=== PATIENT | female | born 1980 | race Caucasian/White ===

== ENCOUNTER 2016-12-10 15:31 | Emergency (ER) | payer OTHER ==
[2016-12-10 15:34] VITALS: BP 150/82; PULSE 70; RESP 20; TEMP 98.2; O2SAT 100
--- NOTE | 2016-12-10 16:06 | PD ---
HPI Chief Complaint: Eye Problems/Injury Time Seen by Provider: 16:06 Travel History International Travel<30 days: No Contact w/Intl Traveler<30days: No Traveled to known affect area: No History of Present Illness HPI 26-year-old female presents to the emergency Department with complaint of right eye redness and pain that started yesterday. She woke up yesterday morning with her right eye completely crusted shut and called her doctor and the prescribed her Polytrim eyedrops but she started using at approximately 3:00 yesterday afternoon. She's been using the drops every 3 hours to both eyes because she had some minimal crusting in her left eye. She is concerned of the redness to the lateral aspect of her right thigh and increased pain. She reports improvement in eye drainage. She woke up this morning with minimal crusting to both of her eyes. She took a pain medication that she was prescribed for her low back pain earlier with some relief of pain. Denies trauma to the eye or known foreign body. She denies change in vision. Denies photophobia. Denies fever, chills, nausea, vomiting. Allergies to codeine. No other modifying factors or associated signs and symptoms. PFSH Past Medical History ?: Not Social History Tobacco Use: No Allergies-Medications (Allergen,Severity, Reaction): Coded Allergies: Codeine (Verified Allergy, Unknown, 12/10/16) Reported Meds & Prescriptions Reported Meds & Active Scripts Active Erythromycin Opth Oint 5 Mg/Gm Oint 1 Applic EACH EYE QID 7 Days Review of Systems Except as stated in HPI: all other systems reviewed are Neg Physical Exam Narrative GENERAL: Well-nourished, well-developed patient, in no acute distress; afebrile , nontoxic-appearing SKIN: Warm and dry. HEAD: Atraumatic. Normocephalic. EYES: Pupils equal and round at 3 mm with brisk reaction. PERRLA. EOMI. right lid eversion with no foreign body noted. Right eye with scleral hemorrhage noted to the lateral aspect; and mild lid edema. No orbital tenderness, erythema or cellulitis. Right eye without photophobia. No consensual photophobia. No scleral icterus. Clear drainage. Seth lamp exam reveals [-] at the [-] position. ENT: Mucosa pink and moist. Airway patent. NECK: Trachea midline. CARDIOVASCULAR: Regular rate. RESPIRATORY: No accessory muscle use. GASTROINTESTINAL: Flat. NEUROLOGICAL: Awake and alert. Oriented 3. No obvious cranial nerve deficits. Motor grossly within normal limits. Normal speech. PSYCHIATRIC: Appropriate mood and affect; insight and judgment normal. Data Data Last Documented VS Vital Signs Date Time Temp Pulse Resp B/P Pulse Ox O2 Delivery O2 Flow Rate FiO2 12/10/16 15:34 98.2 70 20 150/82 100 Room Air Orders Proparacaine 0.5% Opth Soln (Alcaine 0.5 (12/10/16 16:15) MDM Medical Decision Making Medical Screen Exam Complete: Yes Emergency Medical Condition: Yes Medical Record Reviewed: Yes Differential Diagnosis Viral Conjunctivitis, chemosis, scleral hemorrhage, bacterial conjunctivitis Narrative Course 36-year-old female physical examination consistent with right eye scleral hemorrhage, chemosis of right conjunctiva, and conjunctivitis. Seth lamp exam is normal. Patient states ever since she started using the Polytrim eyedrops she developed the ecchymosis and scleral hemorrhage of the right eye. I instructed the patient to stop using the Polytrim eyedrops and prescribed her erythromycin for home. I offered the patient a nonnarcotic while in the ER and she declined. The patient has been sick with nasal congestion and cough for a week. I did offer to give her a prescription for an oral antibiotics and she declined. She said she has history of [place] spotted fever and she was on so many antibiotics it tore up her stomach. She has had close follow-up with her primary care provider and they're trying to keep her away from antibiotics. Instructed patient to follow up with ophthalmology and primary care. Patient verbalizes understanding and agreement with treatment plan. Patient is medically cleared and stable for discharge. Discussed reasons to return to the emergency department. Instructed patient to follow up with primary care provider. Patient agrees with treatment plan. The patients vital signs are stable and the patient is stable for outpatient follow-up and treatment. Patient discharged home, stable and in no acute distress. 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 Patient Instructions: Conjunctivitis (ED), General Instructions Departure Forms: Tests/Procedures, Work Release Enter return to work date: Dec 12, 2016 Additional Instructions: Conjunctivitis is contagious Use antibiotic drops as prescribed Apply warm or cool compresses to both eyes for a few minutes several times daily to minimize irritation Avoid triggers, such as allergens, that may irritate your eyes Wash your hands frequently Do not share washcloths, towels, pillows, or any other material that has touched your eyes with any other household members Follow-up with your primary care provider Follow-up with ophthalmology Return to the emergency department immediately with worsening of symptoms Med/Other Pt SpecificInfo: Med Stopped Scripts Erythromycin Opth Oint 5 Mg/Gm Oint1 Applic EACH EYE QID 7 Days Ref 0 Prov:Leila Espinal 12/10/16 Disposition: 01 DISCHARGE HOME Condition: Stable Leila Espinal Dec 10, 2016 16:06
[2016-12-10] MEDS ORDERED: PROPARACAINE HCL 0.5% OPHT SOLN 15 ML BTL RIGHT EYE ONE (16:15)
[2016-12-10] MEDS ORDERED: ERYTOIN10 EACH EYE (16:48)
== END 2016-12-10 17:18 | disposition home or self-care (01) ==
LOC: NEPK 15:31
DX: H10.9 Unspecified conjunctivitis (principal)
CPT/HCPCS: 99282

== ENCOUNTER 2018-03-14 06:09 | Inpatient (IN) ==
[2018-03-14] MEDS ORDERED: Sodium Chlor 0.9% Inj 500 ML IV.SIG PRN (07:20)
[2018-03-14] MEDS ORDERED: Naloxone Inj 0.4 MG/ML Vial IV.PUSH PRN ×2 (07:20→17:07)
[2018-03-14] MEDS ORDERED: Sod Chloride 0.9% Inj 1,000 ML IV.CONT PRN (07:20)
[2018-03-14] MEDS ORDERED: fentaNYL Citrate Inj 100 MCG/2 ML Ampul IV.PUSH PRN ×2 (07:20)
[2018-03-14] MEDS ORDERED: Oxytocin 30 Units/500ml Premix 30 UNITS/500 ML BAG IV.SIG ONE (07:20)
[2018-03-14] MEDS ORDERED: Citric Acid/Sodium Citrate Liq 30 ML UDC PO SCH (07:30)
[2018-03-14 07:54] LABS: Baso % (Auto) 0.3 % (0.0-2.0); Eos # (Auto) 0.1 th/mm3 (0.0-0.4); Hematocrit 43.1 % (35.0-46.0); Hemoglobin 14.4 gm/dL (11.6-15.3); Lymph # (Auto) 1.7 th/mm3 (1.0-4.8); Lymph % (Auto) 15.5 % (9.0-44.0); Mean Corpuscular HGB Conc 33.4 % (32.0-36.0); Mean Corpuscular Hemoglobin 29.7 pg (27.0-34.0); Mean Corpuscular Volume 88.9 fL (80.0-100.0); Mean Platelet Volume 8.5 fL (7.0-11.0); Mono # (Auto) 0.9 th/mm3 (0.0-0.9); Mono % (Auto) 8.2 % (0.0-8.0); Neut # (Auto) 8.4 th/mm3 (1.8-7.7); Platelet Count 186 th/mm3 (150-450); Red Blood Count 4.85 mil/mm3 (4.00-5.30); Red Cell Distribution Width 13.5 % (11.6-17.2); White Blood Count 11.2 th/mm3 (4.0-11.0)
[2018-03-14] MEDS ORDERED: Penicillin G Potassium Inj 5,000,000 UNIT in Sodium Chloride 0.9% Inj 100 ML IV.SIG ONE (08:00)
[2018-03-14 08:04] LABS: Bilirubin,Urine Negative (Negative); Clarity,Urine Clear (Clear); Color,Urine Yellow (Yellw/Straw); Glucose,Urine (UA) Negative (Negative); Hyaline Casts,Urine 1 /lpf (0-3); Leukocyte Esterase,Urine Negative (Negative); Mucus,Urine Few /lpf (Occasional); Nitrite,Urine Negative (Negative); Specific Gravity,Urine 1.014 (1.002-1.035); Squamous Epithelial Cell,Urine 1 /hpf (0-5)
[2018-03-14 08:06] LABS: Amphetamine Screen,Urine Neg (Neg); Barbiturate Screen,Urine Neg (Neg); Cannabinoid Screen,Urine Neg (Neg); Cocaine Screen,Urine Neg (Neg)
[2018-03-14 08:08] LABS: Opiate Screen,Urine Neg (Neg)
--- NOTE | 2018-03-14 08:21 | P.OBLABOR ---
Subjective Interval history: 37 yo mwf at 39 and 6/7 admitted for cervical ripening and delivery. No GTN hypertension, GDM or PTL + GBS No leaking, bleeding. GFM Objective Vital Signs: Vital Signs - 8 hr 03/14/18 06:37 03/14/18 07:52 Temperature 98.0 F Pulse Rate 68 72 Respiratory Rate 15 18 Blood Pressure 130/70 120/80 Objective: cervix soft, anterior, -2 50%/1-2 arom bloody strip category one EFW 8 pounds pelvis proven Weeks Gestation: 40 Patient Started Active Labor: No Medical Induction of Labor: Yes Medical Induction Start Date: 03/14/18 Medical Induction Start Time: 08:20 Artificial Rupture of Membrane: Yes Artificial ROM Date: 03/14/18 Artificial ROM Time: 08:21 Assessment and Plan - Diagnosis (1) 40 weeks gestation of Code(s): Z3A.40 - 40 weeks gestation of Status: Acute - Plan anticipate
--- NOTE | 2018-03-14 08:56 | P.HPOB ---
History of Present Illness Primary Care Physician: No Primary Care Physician Chief Complaint: iol at term History of Present Illness: 37 yo with iup at 39w6d being admitted for iol at term. SHe has good movement, irreg contractions. No lof or vb. BPP in office yesterday confirms cephalic presentation, BPP 04/11. She has had quick inductions with her previous pregnancies; last induction she had pitocin for 3 hours and delivered without any complications. Largest child was 8 lb 14 oz. Weeks Gestation:: 40 Para: 3 : 5 Total # of Miscarriage(s): 1 - Inpatient Certification If this patient has been admitted as an Inpatient: I certify that the inpatient services were ordered in accordance with Medicare regulations governing the order. This includes certification that hospital inpatient services are reasonable and necessary and in the case of services not specified as inpatient-only under 42 CFR 419.22(n), that they are appropriately provided as inpatient services in accordance to with the 2-midnight benchmark under 43 CFR 412.3(e) Estimated Total Length of Stay (Days): 3 Plans for Post Hospital Care: Home Review of Systems All other systems reviewed negative except as stated in HPI PMFSH - Medical / Surgical Hx Neg / Unobtainable Medical Problems Denied: Yes - Surgical History Surgical History: Surgical History (Last Updated 03/14/18 @ 08:49 by Dyan Bonds MD) H/O dilation and curettage - Tobacco History Second Hand Smoke Exposure: No Tobacco Use In Past 30 Days: No Smoking Status: Never smoker - Travel History Recent Travel in the [place] Within the Last 8 Weeks: No Recent Travel Out of the Country Within the Last 8 Weeks: No Medications and Allergies Active Medications: Active Medications Citric Acid/Sodium Citrate (Sodium Citrate/Citric Acid Liq) 30 ml 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 [facility] Stop: 03/18/18 07:29 Fentanyl Citrate (Fentanyl Inj) 50 mcg IV.PUSH Q1H PRN PRN Reason: Pain Scale 3 - 5 Fentanyl Citrate (Fentanyl Inj) 100 mcg IV.PUSH Q1H PRN PRN Reason: PAIN SCALE 6 TO 10 Lactated Ringer's (Lr 1000 Ml Inj) 1,000 mls @ 125 mls/hr IV.CONT .Q8H [facility] Last Admin: 03/14/18 07:49 Dose: 125 mls/hr Lactated Ringer's (Lr 1000 Ml Inj) 1,000 mls @ 3,000 mls/hr IV.SIG UNSCH PRN PRN Reason: compromise or epidural Sodium Chloride (Ns Inj) 500 mls @ 1,000 mls/hr IV.SIG UNSCH PRN PRN Reason: SEE LABEL COMMENTS Sodium Chloride (Ns Inj) 1,000 mls @ 100 mls/hr IV.CONT .Q10H PRN PRN Reason: SEE LABEL COMMENTS Penicillin G Potassium 2,500, (000 unit/ Sodium Chloride) 100 mls @ 200 mls/hr IV.SIG Q4H CORAZON Lactated Ringer's (Lr 1000 Ml Inj) 1,000 mls @ 125 mls/hr IV.CONT .Q8H CORAZON Lidocaine HCl (Xylocaine 1% Inj) 0.1 ml I-DERMAL PRN PRN PRN Reason: For IV start Stop: 03/17/18 07:19 Lidocaine HCl (Xylocaine 1% Inj) 10 ml INFILTRATN PRN PRN PRN Reason: For episiotomy repair Stop: 03/16/18 07:19 Mineral Oil (Muri-Lube Oil) 10 ml TOPICAL PRN PRN PRN Reason: PRN perineal massage Naloxone HCl (Narcan Inj) 0.1 mg IV.PUSH Q2M PRN PRN Reason: for opiate reversal Ondansetron HCl (Zofran Odt) 4 mg PO Q6H PRN PRN Reason: NAUSEA Allergies Allergy/AdvReac Type Severity Reaction Status Date / Time codeine Allergy Mild Nausea Verified 03/14/18 08:50 Sulfa (Sulfonamide Allergy Unknown Nausea Verified 03/14/18 08:50 Antibiotics) Home Medications Medication Instructions Recorded Confirmed Type PNV #[id number] 1 tab PO DAILY 03/14/18 03/14/18 History Exam Vital signs: Vital Signs 03/14/18 06:37 03/14/18 07:52 Temperature 98.0 F Pulse Rate 68 72 Respiratory Rate 15 18 Blood Pressure 130/70 120/80 Intake & Output 03/13/18 03/14/18 03/14/18 18:59 06:59 18:59 Weight 83.461 kg 83.461 kg Other: Weight On Admission 83.461 kg - Constitutional no acute distress - Routine HEENT Exam Head: Present: normocephalic - Routine Neck Exam Present: supple, full ROM - Routine Chest/Breast/Axilla Exam Chest wall: Absent: tenderness - Routine Respiratory Exam Absent: accessory muscle use - Routine Cardiovascular Exam Present: RRR. Absent: JVD - Routine Abdominal Exam Present: soft - Routine Exam Comments: /-3 yesterday - Routine Extremities Exam Absent: cyanosis, clubbing Results - Labs CBC & Chem 7: 03/14/18 07:20 Labs: Laboratory Results - last 24 hr 03/14/18 03/14/18 03/14/18 06:40 06:40 07:20 WBC 11.2 H RBC 4.85 Hgb 14.4 Hct 43.1 MCV 88.9 MCH 29.7 MCHC 33.4 RDW 13.5 Plt Count 186 MPV 8.5 Neut % (Auto) 75.0 H Lymph % (Auto) 15.5 [place] % (Auto) 8.2 H Eos % (Auto) 1.0 Baso % (Auto) 0.3 Neut # (Auto) 8.4 H Lymph # (Auto) 1.7 [place] # (Auto) 0.9 Eos # (Auto) 0.1 Baso # (Auto) 0.0 WBC Differential . Differential Comment Auto diff final Urine Color Yellow Urine Clarity Clear Urine pH 7.0 Ur Specific [place] 1.014 Urine Protein Negative Urine Glucose (UA) Negative Urine Ketones Negative Urine Occult Blood Negative Urine Nitrate Negative Urine Bilirubin Negative Urine Urobilinogen Less than 2 Ur Leukocyte Esterase Negative Urine RBC 1 Urine WBC 1 Ur Squamous Epith Cells 1 Hyaline Casts 1 Urine Mucus Few H Micro UA Comment Culture not ind Urine Culture Comments Culture not ind Urine Opiates Screen Neg Ur Barbiturates Screen Neg Ur Amphetamines Screen Neg U Benzodiazepines Scrn Neg Urine Cocaine Screen Neg U Cannabinoids Screen Neg Blood Type Blood Type Recheck 03/14/18 07:20 WBC RBC Hgb Hct MCV MCH MCHC RDW Plt Count MPV Neut % (Auto) Lymph % (Auto) [place] % (Auto) Eos % (Auto) Baso % (Auto) Neut # (Auto) Lymph # (Auto) [place] # (Auto) Eos # (Auto) Baso # (Auto) WBC Differential Differential Comment Urine Color Urine Clarity Urine pH Ur Specific [place] Urine Protein Urine Glucose (UA) Urine Ketones Urine Occult Blood Urine Nitrate Urine Bilirubin Urine Urobilinogen Ur Leukocyte Esterase Urine RBC Urine WBC Ur Squamous Epith Cells Hyaline Casts Urine Mucus Micro UA Comment Urine Culture Comments Urine Opiates Screen Ur Barbiturates Screen Ur Amphetamines Screen U Benzodiazepines Scrn Urine Cocaine Screen U Cannabinoids Screen Blood Type O Positive Blood Type Recheck Required Caprini VTE Risk Assessment Caprini VTE Risk Assessment: No/Low Risk (score <= 1) Caprini Risk Assessment Model: Point Value = 1 Point Value = 2 Point Value = 3 Point Value = 5 Age 41-60 Minor surgery BMI > 25 kg/m2 Swollen legs Varicose veins or History of unexplained or recurrent spontaneous Oral contraceptives or hormone replacement Sepsis (< 1 month) Serious lung disease, including pneumonia (< 1 month) Abnormal pulmonary function Acute myocardial infarction Congestive heart failure (< 1 month) History of inflammatory bowel disease Medical patient at bed rest Age 61-74 Arthroscopic surgery Major open surgery (> 45 min) Laparoscopic surgery (> 45 min) Malignancy Confined to bed (> 72 hours) Immobilizing plaster cast Central venous access Age >= 75 History of VTE Family history of VTE Factor V Leiden Prothrombin [id number] Lupus anticoagulant Anticardiolipin antibodies Elevated serum homocysteine Heparin-induced thrombocytopenia Other congenital or acquired thrombophilia Stroke (< 1 month) Elective arthroplasty Hip, pelvis, or leg fracture Acute spinal cord injury (< 1 month) Prophylaxis Regimen: Total Risk Factor Score Risk Level Prophylaxis Regimen 0-1 Low Early ambulation 2 Moderate Order ONE of the following: *Sequential Compression Device (SCD) *Heparin 5000 units SQ BID 3-4 Higher Order ONE of the following medications: *Heparin 5000 units SQ TID *Enoxaparin/Lovenox 40 mg SQ daily (WT < 150 kg, CrCl > 30 mL/min) *Enoxaparin/Lovenox 30 mg SQ daily (WT < 150 kg, CrCl > 10-29 mL/min) *Enoxaparin/Lovenox 30 mg SQ BID (WT < 150 kg, CrCl > 30 mL/min) AND/OR *Sequential Compression Device (SCD) 5 or more Highest Order ONE of the following medications: *Heparin 5000 units SQ TID (Preferred with Epidurals) *Enoxaparin/Lovenox 40 mg SQ daily (WT < 150 kg, CrCl > 30 mL/min) *Enoxaparin/Lovenox 30 mg SQ daily (WT < 150 kg, CrCl > 10-29 mL/min) *Enoxaparin/Lovenox 30 mg SQ BID (WT < 150 kg, CrCl > 30 mL/min) AND *Sequential Compression Device (SCD) Assessment and Plan - Diagnosis (1) 40 weeks gestation of Code(s): Z3A.40 - 40 weeks gestation of Status: Acute - Plan 37 yo with iup at 39w6d being admitted for iol at term 1) IOL- misoprostol followed by pitocin. HAs had quick deliveries in past. Pelvic proven to 8 lb 14 oz. 2) AMA - declined cfDNA testing. Normal anatomy scan 3) lslil- repeat pp 4) Abn 1hr , nl 3 hour. 47 lb wt gain this 5) CF screen + FOB negative 6) GBS positive 7) FEtus - Cephalic approx 8 lb, female
[2018-03-14] MEDS ORDERED: Oxytocin 30 Units/500ml Premix 30 UNITS/500 ML BAG IV.SIG PRN (09:00)
[2018-03-14] MEDS: Penicillin G Potassium Inj 2,500,000 UNIT in Sodium Chlor 0.9% Inj 100 ML IV.SIG SCH ×2 (11:43→15:51)
[2018-03-14] MEDS ORDERED: Diphtheria/Tetanus/Pertussis Vaccine Inj 0.5 ML Syringe IM ONE (16:00)
[2018-03-14] MEDS ORDERED: Measles/Mumps/Rubella Vaccine Inj 0.5 ML Vial SQ ONE (16:00)
[2018-03-14] MEDS ORDERED: Oxytocin 30 Units/500ml Premix 30 UNITS/500 ML BAG ONE (16:48)
[2018-03-14] MEDS ORDERED: Carboprost Tromethamine Inj 250 MCG/ML Ampul IM ONE ×2 (16:51→17:14)
[2018-03-14] MEDS ORDERED: fentaNYL Citrate Inj 100 MCG/2 ML Ampul ONE (16:54)
[2018-03-14 17:03] LABS: Cord Arterial Blood HCO3 20.6
[2018-03-14] MEDS ORDERED: Acetaminophen 325 MG Tablet PO PRN (17:07)
[2018-03-14] MEDS ORDERED: Witch Hazel 50%/Glyderin 12.5% 40 Pad Jar RECTAL PRN (17:07)
[2018-03-14] MEDS ORDERED: Bisacodyl 10 MG Supp RECTAL PRN (17:07)
[2018-03-14] MEDS ORDERED: Benzocaine 20% Top Spray 60 ML Can TOPICAL PRN (17:07)
--- NOTE | 2018-03-14 17:07 | P.OBDELI ---
Weeks Gestation: 40 Anesthesia: None Episiotomy: none Vaginal Delivery: Vacuum Presentation: Occiput anterior Nuchal Cord: x1 Delayed Cord Clamping (45 sec): Yes Placenta: Spontaneous delivery, Intact, Uterus explored +, 3 vessel cord, Cord pH Laceration: None Estimated blood loss (mL): 500 Infant: Female Additional Information: at 7-8 cm FHT went down to 60's-80's and did not return to baseline with regular rescusitative efforts. After ~[address] Feldman moved her to OR in anticipation of section. I arrived and after being transferred to the OR table baby's HR returned to 140's. Cervical check showed rim and -1 and she pushed over the next fifteen minutes and vacuum applied for three contractions to bring baby down. FHR reassuring. She then spontaneously rotated the and pushed her out. Port wine fluid noted. Terminal meconium noted. Apgars 9 and 9. Cord pH pending. No tears. Placenta removed intact with #VC. No obvious abruptio but clinical picture otherwise suggests abruptio. Weight 7 14. EBL 500 cc NICU staff was present. Mom and baby together now and returning to labor room for short recovery prior to one east.
[2018-03-14] MEDS ORDERED: Methylergonovine Inj 0.2 MG/ML Ampul ONE (17:15)
[2018-03-14] MEDS ORDERED: Oxytocin 30 Units/500ml Premix 30 UNITS/500 ML BAG IV.CONT SCH (17:15)
[2018-03-14] MEDS ORDERED: fentaNYL Citrate Inj 100 MCG/2 ML Ampul IV.PUSH ONE (17:30)
[2018-03-14 17:36] LABS: Baso % (Auto) 0.2 % (0.0-2.0); Eos % (Auto) 0.1 % (0.0-4.0); Hematocrit 40.9 % (35.0-46.0); Hemoglobin 13.6 gm/dL (11.6-15.3); Lymph # (Auto) 1.5 th/mm3 (1.0-4.8); Lymph % (Auto) 8.4 % (9.0-44.0); Mean Corpuscular HGB Conc 33.3 % (32.0-36.0); Mean Corpuscular Hemoglobin 30.3 pg (27.0-34.0); Mean Corpuscular Volume 90.8 fL (80.0-100.0); Mean Platelet Volume 8.6 fL (7.0-11.0); Mono # (Auto) 1.1 th/mm3 (0.0-0.9); Mono % (Auto) 6.2 % (0.0-8.0); Neut # (Auto) 14.7 th/mm3 (1.8-7.7); Neut % (Auto) 85.1 % (16.0-70.0); Platelet Count 168 th/mm3 (150-450); Red Cell Distribution Width 13.4 % (11.6-17.2); White Blood Count 17.3 th/mm3 (4.0-11.0)
[2018-03-14] MEDS ORDERED: Zolpidem Tartrate 5 MG Tablet PO PRN (21:00)
--- NOTE | 2018-03-15 07:38 | P.PNOB ---
Subjective Post day: 1 Objective Vital Signs/I&O: Vital Signs 03/14/18 07:52 03/14/18 09:20 03/14/18 09:56 Temperature 98.1 F Pulse Rate 72 63 81 Respiratory Rate 18 18 Blood Pressure 120/80 130/69 115/64 03/14/18 10:21 03/14/18 10:22 03/14/18 11:06 Temperature Pulse Rate 66 62 Respiratory Rate 18 Blood Pressure 108/61 124/72 03/14/18 11:41 03/14/18 11:43 03/14/18 12:23 Temperature 98.3 F Pulse Rate 58 L 62 Respiratory Rate 18 Blood Pressure 112/66 118/66 03/14/18 12:49 03/14/18 13:19 03/14/18 13:30 Temperature 98.0 F Pulse Rate 65 72 Respiratory Rate 18 Blood Pressure 119/73 125/78 03/14/18 13:54 03/14/18 14:27 03/14/18 14:28 Temperature Pulse Rate 80 77 Respiratory Rate 18 Blood Pressure 133/78 133/81 03/14/18 15:05 03/14/18 15:35 03/14/18 17:11 Temperature 98.0 F Pulse Rate 76 75 109 H Respiratory Rate 18 Blood Pressure 130/68 140/87 144/71 H 03/14/18 17:12 03/14/18 17:15 03/14/18 17:20 Temperature Pulse Rate 90 105 H Respiratory Rate 18 Blood Pressure 03/14/18 17:23 03/14/18 17:24 03/14/18 17:25 Temperature 98.5 F Pulse Rate 98 H Respiratory Rate 18 Blood Pressure 122/68 03/14/18 17:35 03/14/18 17:50 03/14/18 18:00 Temperature Pulse Rate 99 H 98 H 96 H Respiratory Rate 18 Blood Pressure 136/101 H 124/57 L 133/69 03/14/18 18:40 03/14/18 18:41 03/14/18 20:00 Temperature 98.0 F Pulse Rate 79 70 Respiratory Rate 16 18 Blood Pressure 108/60 110/65 03/15/18 07:31 Temperature Pulse Rate Respiratory Rate 18 Blood Pressure Intake & Output 03/14/18 03/15/18 03/15/18 18:59 06:59 18:59 Intake Total 1100 / 1100 Balance 1100 / 1100 Weight 83.461 kg Intake: IV 1100 / 1100 LR 1000 mL Inj 1,000 ML @ 125 1000 / 1000 mls/hr IV.CONT .Q8H [facility] Rx#: [id number] Pfizerpen-G Inj 2,500,000 UNIT 100 / 100 In NS Inj 100 ML @ 200 mls/hr IV.SIG Q4H [facility] Rx#:[id number] Other: Weight On Admission 83.461 kg Result Diagrams: 03/14/18 17:19 Objective Remarks: GENERAL: Well-nourished, well-developed patient. CARDIOVASCULAR: Regular rate and rhythm without murmurs, gallops, or rubs. RESPIRATORY: Breath sounds equal bilaterally. No accessory muscle use. ABDOMEN/GI: Abdomen soft, non-tender. Fundus: Firm, non-tender at umbilicus. GENITOURINARY: Light to moderate bleeding. EXTREMITIES: No cyanosis or edema, non-tender, without signs of DVT. 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[employer] [facility] Stop: 03/18/18 07:29 Lactated Ringer's (Lr 1000 Ml Inj) 1,000 mls @ 125 mls/hr IV.CONT .Q8H [facility] Last Admin: 03/14/18 15:51 Dose: 125 mls/hr Lactated Ringer's (Lr 1000 Ml Inj) 1,000 mls @ 3,000 mls/hr IV.SIG UNSCH PRN PRN Reason: compromise or epidural Sodium Chloride (Ns Inj) 500 mls @ 1,000 mls/hr IV.SIG UNSCH PRN PRN Reason: SEE LABEL COMMENTS Sodium Chloride (Ns Inj) 1,000 mls @ 100 mls/hr IV.CONT .Q10H PRN PRN Reason: SEE LABEL COMMENTS Penicillin G Potassium 2,500, (000 unit/ Sodium Chloride) 100 mls @ 200 mls/hr IV.SIG Q4H [facility] Last Admin: 03/14/18 15:51 Dose: 200 mls/hr Lactated Ringer's (Lr 1000 Ml Inj) 1,000 mls @ 125 mls/hr IV.CONT .Q8H [facility] Last Admin: 03/14/18 08:51 Dose: Not Given Lactulose (Lactulose Liq) 30 ml PO DAILY PRN PRN Reason: SEVERE CONSITIPATION Lidocaine HCl (Xylocaine 1% Inj) 0.1 ml I-DERMAL PRN PRN PRN Reason: For IV start Stop: 03/17/18 07:19 Lidocaine HCl (Xylocaine 1% Inj) 10 ml INFILTRATN PRN PRN PRN Reason: For episiotomy repair Stop: 03/16/18 07:19 Mineral Oil (Muri-Lube Oil) 10 ml TOPICAL PRN PRN PRN Reason: PRN perineal massage Ondansetron HCl (Zofran Odt) 4 mg PO Q6H PRN PRN Reason: NAUSEA OR VOMITING Oxycodone/Acetaminophen (Percocet 5/325 Mg) 1 tab PO Q4H PRN PRN Reason: PAIN SCALE 3 TO 5 Oxycodone/Acetaminophen (Percocet 5/325 Mg) 2 tab PO Q4H PRN PRN Reason: PAIN SCALE 6 TO 10 Vit/Calcium/Iron/Folic Ac (Stuartnatal Plus 3) 1 tab PO DAILY CORAZON Senna/Docusate Sodium (Audra-Colace) 1 tab PO BID CORAZON Sennosides (Senokot) 17.2 mg PO Q12H PRN PRN Reason: Moderate Constipation Sodium Chloride (Ns Flush) 2 ml IV.FLUSH BID CORAZON Sodium Chloride (Ns Flush) 2 ml IV.FLUSH PRN PRN PRN Reason: FLUSH AFTER USING IV ACCESS Witch Martha/Glycerin (Tucks Pads) 1 applicatio RECTAL QID PRN PRN Reason: HEMORRHOIDS Zolpidem Tartrate (Ambien) 5 mg PO HS PRN PRN Reason: SLEEP Assessment and Plan - Diagnosis (1) 40 weeks gestation of Code(s): Z3A.40 - 40 weeks gestation of Status: Acute (2) Vacuum extractor delivery, delivered Code(s): O66.5 - Attempted application of vacuum extractor and forceps Status : Acute - Plan 37 yo with iup at 39w6d being admitted for iol at term 1) IOL- misoprostol followed by pitocin. HAs had quick deliveries in past. Pelvic proven to 8 lb 14 oz. 2) AMA - declined cfDNA testing. Normal anatomy scan 3) lslil- repeat pp 4) Abn 1hr , nl 3 hour. 47 lb wt gain this 5) CF screen + FOB negative 6) GBS positive 7) FEtus - Cephalic approx 8 lb, female s/p vacuum delivery 4pm yesterday PPD #1, no complaints, pain controlled Discharge Planning: discharge in am - Attending Attestation pt seen by me
[2018-03-15] MEDS: Prenatal Vit/Ca/Iron/Folic Acid Tablet PO SCH (08:44)
[2018-03-15] MEDS: Senna/Docusate Sodium 8.6/50 MG Tablet PO SCH (08:44)
[2018-03-15] MEDS ORDERED: PNV IRON FOLIC ACID OMEGA3 PO SCH (09:00)
[2018-03-15] MEDS ORDERED: [UNRECOGNIZED DRUG - OTHER] PO SCH (09:00)
--- NOTE | 2018-03-16 08:05 | P.PNOB ---
Subjective Post day: 2 Interval history: Stable, doing well, plan discharge today Objective Vital Signs/I&O: Vital Signs 03/15/18 08:00 03/15/18 20:30 Temperature 98.2 F 98.2 F Pulse Rate 59 L 80 Respiratory Rate 16 Blood Pressure 101/59 L 117/69 Result Diagrams: 03/14/18 17:19 Objective Remarks: GENERAL: Well-nourished, well-developed patient. CARDIOVASCULAR: Regular rate and rhythm without murmurs, gallops, or rubs. RESPIRATORY: Breath sounds equal bilaterally. No accessory muscle use. ABDOMEN/GI: Abdomen soft, non-tender. Fundus: Firm, non-tender at umbilicus. GENITOURINARY: Light to moderate bleeding. EXTREMITIES: No cyanosis or edema, non-tender, without signs of DVT. Medications and IVs: Active Medications Acetaminophen (Tylenol) 650 mg PO Q4H PRN PRN Reason: PAIN SCALE 1 TO 2 Al Hydroxide/Mg Hydroxide (Milk Of Magnesia Liq) 30 ml PO Q12H PRN PRN Reason: Mild Constipation Benzocaine (Americaine 20% Top Trinity) 1 spray TOPICAL Q4H PRN PRN Reason: For Perineum Discomfort Bisacodyl (Dulcolax Supp) 10 mg RECTAL DAILY PRN PRN Reason: SEVERE CONSITIPATION Citric Acid/Sodium Citrate (Sodium Citrate/Citric Acid Liq) 30 ml PO [employer]ACH[employer] [facility] Stop: 03/18/18 07:29 Lactated Ringer's (Lr 1000 Ml Inj) 1,000 mls @ 125 mls/hr IV.CONT .Q8H [facility] Last Admin: 03/14/18 15:51 Dose: 125 mls/hr Lactated Ringer's (Lr 1000 Ml Inj) 1,000 mls @ 3,000 mls/hr IV.SIG UNSCH PRN PRN Reason: compromise or epidural Sodium Chloride (Ns Inj) 500 mls @ 1,000 mls/hr IV.SIG UNSCH PRN PRN Reason: SEE LABEL COMMENTS Sodium Chloride (Ns Inj) 1,000 mls @ 100 mls/hr IV.CONT .Q10H PRN PRN Reason: SEE LABEL COMMENTS Penicillin G Potassium 2,500, (000 unit/ Sodium Chloride) 100 mls @ 200 mls/hr IV.SIG Q4H [facility] Last Admin: 03/14/18 15:51 Dose: 200 mls/hr Lactated Ringer's (Lr 1000 Ml Inj) 1,000 mls @ 125 mls/hr IV.CONT .Q8H [facility] Last Admin: 03/14/18 08:51 Dose: Not Given Lactulose (Lactulose Liq) 30 ml PO DAILY PRN PRN Reason: SEVERE CONSITIPATION Lidocaine HCl (Xylocaine 1% Inj) 0.1 ml I-DERMAL PRN PRN PRN Reason: For IV start Stop: 03/17/18 07:19 Mineral Oil (Muri-Lube Oil) 10 ml TOPICAL PRN PRN PRN Reason: PRN perineal massage Ondansetron HCl (Zofran Odt) 4 mg PO Q6H PRN PRN Reason: NAUSEA OR VOMITING Oxycodone/Acetaminophen (Percocet 5/325 Mg) 1 tab PO Q4H PRN PRN Reason: PAIN SCALE 3 TO 5 Oxycodone/Acetaminophen (Percocet 5/325 Mg) 2 tab PO Q4H PRN PRN Reason: PAIN SCALE 6 TO 10 Vit/Calcium/Iron/Folic Ac (Stuartnatal Plus 3) 1 tab PO DAILY [facility] Last Admin: 03/15/18 08:44 Dose: 1 tab Senna/Docusate Sodium (Audra-Colace) 1 tab PO BID [facility] Last Admin: 03/15/18 08:44 Dose: 1 tab Sennosides (Senokot) 17.2 mg PO Q12H PRN PRN Reason: Moderate Constipation Sodium Chloride (Ns Flush) 2 ml IV.FLUSH BID [facility] Last Admin: 03/15/18 08:50 Dose: 2 ml Sodium Chloride (Ns Flush) 2 ml IV.FLUSH PRN PRN PRN Reason: FLUSH AFTER USING IV ACCESS Witch Martha/Glycerin (Tucks Pads) 1 applicatio RECTAL QID PRN PRN Reason: HEMORRHOIDS Zolpidem Tartrate (Ambien) 5 mg PO HS PRN PRN Reason: SLEEP Assessment and Plan - Diagnosis (1) 40 weeks gestation of Code(s): Z3A.40 - 40 weeks gestation of Status: Acute Plan: 03/16: PPD#2; stable, plan discharge to home (2) Vacuum extractor delivery, delivered Code(s): O66.5 - Attempted application of vacuum extractor and forceps Status : Acute - Plan 37 yo with iup at 39w6d being admitted for iol at term 1) IOL- misoprostol followed by pitocin. HAs had quick deliveries in past. Pelvic proven to 8 lb 14 oz. 2) AMA - declined cfDNA testing. Normal anatomy scan 3) lslil- repeat pp 4) Abn 1hr , nl 3 hour. 47 lb wt gain this 5) CF screen + FOB negative 6) GBS positive 7) FEtus - Cephalic approx 8 lb, female s/p vacuum delivery 4pm yesterday PPD #1, no complaints, pain controlled Discharge Planning: discharge today, RTO 6 weeks
[2018-03-16] MEDS: Prenatal Vit/Ca/Iron/Folic Acid Tablet PO SCH (09:05)
[2018-03-16] MEDS: Senna/Docusate Sodium 8.6/50 MG Tablet PO SCH (09:05)
== END 2018-03-16 13:20 | disposition home or self-care (01) ==
LOC: H2E 06:09 → H1EA 18:26
PROVIDERS: ADMIT Obstetrics & Gynecology; ATTEND Obstetrics & Gynecology